=== PATIENT | female | born 1980 | race Caucasian/White ===

== ENCOUNTER 2017-07-18 16:22 | Emergency (ER) | payer SELFPAY ==
[~2017-07-18] VITALS: Ht 160 cm; Wt 65.0 kg
[2017-07-18] MEDS ORDERED: CYCLOBENZAPRINE 10MG TABLET PO PRN (18:45)
[2017-07-18] MEDS ORDERED: KETOROLAC 60MG/2ML VIAL IM ONE (18:45)
[2017-07-18 19:55] VITALS: BP 124/86
== END 2017-07-18 19:57 | disposition home or self-care (01) ==
LOC: ER 16:35
DX: S19.9XXA Unspecified injury of neck, initial encounter (principal); R22.1 Localized swelling, mass and lump, neck; V89.2XXA Person injured in unspecified motor-vehicle accident, traffic, initial encounter; Y93.89 Activity, other specified; Y92.410 Unspecified street and highway as the place of occurrence of the external cause; Y99.8 Other external cause status
CPT/HCPCS: 96372; 99283; J1885